=== PATIENT | male | born 1960 | race Hispanic/Latino ===

== ENCOUNTER → 2018-10-12 | Outpatient (CLI) | payer OTHER ==
[~2018-10-12] MED LIST: ESOMEPRAZOLE; GEMFIBROZIL600 MG PO; NEXIUM40 MG PO; PRAVASTATIN SOD20 MG PO; TYLENOL WITH C1 EACH PO; ZETIA10 MG PO
--- NOTE | 2018-10-12 17:53 | Diagnostic Imaging Report ---
Exam: Left elbow, 3 views History: Left elbow bursitis Comparison: None. Findings: There is normal bone mineralization. No acute, displaced fracture or dislocation. Joint spaces preserved. Linear calcification in the triceps tendon. Soft tissue swelling posterior to the ulna in the expected location of the bursa. No posterior fat pad elevation. Impression: 1. Soft tissue swelling posterior to the ulna in the expected location of the bursa. No gas is noted. Signed by: Dr. Simeon Simons M.D. on 10/12/2018 5:49 PM
== END ==
LOC: RAD 17:15
PROVIDERS: ATTEND Family Medicine
DX: M70.32 Other bursitis of elbow, left elbow (principal)

== ENCOUNTER 2023-08-25 14:03 | Emergency (ER) | payer OTHER ==
[~2023-08-25] VITALS: Ht 170.2 cm; Wt 86.6 kg
[2023-08-25 15:40] VITALS: O2SAT 100
[2023-08-25] MEDS ORDERED: AMOX TR-K CLV1 EAC2 PO (16:12)
== END 2023-08-25 16:23 | disposition home or self-care (01) ==
LOC: ER 14:16
DX: K11.20 Sialoadenitis, unspecified (principal); E11.9 Type 2 diabetes mellitus without complications; E78.5 Hyperlipidemia, unspecified
CPT/HCPCS: 99282